=== PATIENT | male | born 1975 | race Caucasian/White ===

== ENCOUNTER 2018-11-09 15:41 | Emergency (ER) | payer OTHER ==
[2018-11-09 15:45] VITALS: BP 137/78; PULSE 99; RESP 18; TEMP 98
[2018-11-09] MEDS ORDERED: DIAZEPAM 5 MG TAB PO STA (16:35)
[2018-11-09] MEDS ORDERED: ACETAMINOPHEN TAB 325 MG TAB PO STA (16:35)
--- NOTE | 2018-11-09 17:15 | CT ---
EXAMINATION TYPE: CT cervical spine wo con DATE OF EXAM: 11/09/2018 COMPARISON: None HISTORY: NECK PAIN X4 DAYS CT DLP: 298.6 mGycm Automated exposure control for dose reduction was used. TECHNIQUE: CT scan of the cervical spine is obtained without contrast, axial images are obtained, sagittal and c oronal reformatted images are also reviewed. FINDINGS: There is reversal the normal cervical lordosis. Loss of disc height present at C5-6, C4-5. Some right -sided foraminal encroachment present at C5-6 due to lateral extension endplate disc complex. Posteri or disc bulge noted at C6-7, C5-6, C4-5. Cervical spine is visualized in its entirety from C1 through upper thoracic levels, demonstrates sati sfactory alignment without evidence of acute fracture or dislocation. Prevertebral soft tissue appea rs within normal limits. The C1-C2 articulation is within normal limits on the coronal images. IMPRESSION: There is no acute fracture or dislocation evident in the cervical spine. Loss of lordosis may be seen with muscle spasm. There is degenerative disc disease. Cervical MRI may be of benefit.
[2018-11-09] MEDS ORDERED: KETOROLAC 60 MG/2 ML VIAL IM STA (17:29)
--- NOTE | 2018-11-09 18:18 | ED ---
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 Patient denies any recent falls or trauma. Patient states that his pain is primarily left paracervical. Patient has a this is similar to cervical strains he has had in the past. Patient denies any new or concerning symptoms. Patient denies any new onset weakness, paresthesias. Patient states that he has full range of motion of his neck, but does have some muscular skeletal left paracervical pain with range of motion. Patient denies any other symptoms. Patient denies chest pain, shortness of breath, abdominal pain, nausea vomiting diarrhea. Patient has taken Motrin at home with some effectiveness to control his pain. Patient is primarily seeking imaging on his neck and reassurance to ensure that any further damage did not occur. Systemic: Pt denies fatigue, fever/chills, rash. Pt denies weakness, night sweats, weight loss. Neuro: Pt denies headache, visual disturbances, syncope or pre-syncope. HEENT: Pt denies ocular discharge or irritation, otalgia, rhinorrhea, pharyngitis or notable lymphadenopathy. Cardiopulmonary: Pt denies chest pain, SOB, heart palpitations, dyspnea on exertion. Abdominal/GI: Pt denies abdominal pain, n/v/d. : Pt denies dysuria, burning w/ urination, frequency/urgency. Denies new onset urinary or bowel incontinence. MSK: Pt denies loss of strength or function in extremities. Neuro: Pt denies new onset weakness, paresthesias. - Related Data Previous Rx's Medication Instructions Recorded methylPREDNISolone Dose Pack 4 mg PO DIRECTED #21 package 11/09/18 [Medrol Dose Pack] Allergies Allergy/AdvReac Type Severity Reaction Status Date / Time No Known Allergies Allergy Verified 11/09/18 15:44 Review of Systems ROS Statement: Those systems with pertinent positive or pertinent negative responses have been documented in the HPI. ROS Other: All systems not noted in ROS Statement are negative. Past Medical History Past Medical History: No Reported History History of Any Multi-Drug Resistant Organisms: None Reported Past Surgical History: Appendectomy Past Psychological History: No Psychological Hx Reported Smoking Status: Never smoker Past Alcohol Use History: Occasional Past Drug Use History: None Reported General Exam - General Exam Comments Initial Comments: Constitutional: NAD, AOX3, Pt has pleasant affect. HEENT: NC/AT, trachea midline, neck supple, no lymphadenopathy. Posterior pharynx non erythematous, without exudates. External ears appear normal, without discharge. Mucous membranes moist. Eyes PERRLA, EOM intact. There is no scleral icterus. No pallor noted. Cardiopulmonary: RRR, no murmurs, rubs or gallops, no JVD noted. Lungs CTAB in anterior and posterior michelle. No peripheral edema. Abdominal exam: Abdomen soft and non-distended. Abdomen non-tender to palpation in all 4 quadrants. Bowel sounds active in LLQ. No hepatosplenomegaly. No ecchymosis Neuro: CN II-XII grossly intact. No nuchal rigidity. Full active ROM in neck. MSK: No midline cervical, thoracic or lumbar tenderness. Mild L paracervical muscular tenderness. No posterior calf tenderness bilaterally, homans sign negative bilaterally. Posterior tibialis and radial pulse +2 bilaterally. Sensation intact in upper and lower extremities. Full active ROM in upper and lower extremities, 5/5 stregnth. Pt is ambulatory without difficulty. 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 Patient denies any recent falls or trauma. Patient states that his pain is primarily left paracervical. Patient has a this is similar to cervical strains he has had in the past. Patient denies any new or concerning symptoms. Pt VSS, afebrile. Physical exam displayed: CN II-XII grossly intact. No nuchal rigidity. Full active ROM in neck. No midline cervical, thoracic or lumbar tenderness. Mild L paracervical muscular tenderness. No posterior calf tenderness bilaterally, homans sign negative bilaterally. Posterior tibialis and radial pulse +2 bilaterally. Sensation intact in upper and lower extremities. Full active ROM in upper and lower extremities, 5/5 stregnth. Pt is ambulatory without difficulty. Noncontrast CT of cervical spine displayed no acute fracture dislocation event. Loss of lordosis may be due to muscle spasm. Degenerative disc disease. These findings are previously known to patient. Patient pain well-controlled in ED with Tylenol, Valium, Toradol. Patient significant other driving home. Patient to be discharged with Medrol Dosepak. Patient to follow up with primary care provider in 1-2 days. Patient referred to orthopedic surgery for further evaluation. Patient to return to ED if descends symptoms develop, or if condition worsens in any way. Case discussed in depth with Dr. Pizano. Disposition Clinical Impression: Cervical strain, Chronic cervical pain Disposition: HOME SELF-CARE Condition: Good Instructions: Cervical Strain (ED) Additional Instructions: Patient to adhere to previously discussed treatment plan and will take medication(s) as directed. Patient to follow up with PCP in 1-2 days. Patient to return to ED if symptoms do not improve. Prescriptions: methylPREDNISolone Dose Pack [Medrol Dose Pack] 4 mg PO DIRECTED #21 package Is patient prescribed a controlled substance at d/c from ED?: No Referrals: None,Stated [Primary Care Provider] - 1-2 days Da Arechiga MD [Medical Doctor] - 1-2 days Time of Disposition: 18:18
== END 2018-11-09 18:22 | disposition home or self-care (01) ==
LOC: EC 15:41
DX: S16.1XXA Strain of muscle, fascia and tendon at neck level, initial encounter (principal); G89.29 Other chronic pain; X50.9XXA Other and unspecified overexertion or strenuous movements or postures, initial encounter
CPT/HCPCS: 72125; 99284; 96372; J1885